=== PATIENT | female | born 1980 | race Caucasian/White ===

== ENCOUNTER 2016-11-30 18:32 | Emergency (ER) | payer OTHER ==
[2016-11-30 18:49] VITALS: RESP 18
--- NOTE | 2016-11-30 19:39 | ED ---
Abdominal Pain HPI - General Chief Complaint: Abdominal Pain Stated Complaint: and bleeding, abdominal pain Time Seen by Provider: 11/30/16 19:26 Source: patient, RN notes reviewed Mode of arrival: ambulatory Limitations: no limitations - History of Present Illness Initial Comments: Patient is a 35-year-old female with chief complaint of right lower quadrant abdominal pain for the past 24 hours. Patient reports that she took a positive test on November 09. Patient reports that on November 17 she started to have light spotting bleeding. Patient reports that she's continued to have light spotting bleeding from the until today. Patient reports that the bleeding became heavier over the past 2 days and now she has right lower quadrant pain. Patient reports that the pain is a cramping sensation and will occur for a few minutes and then stop. Patient reports that she is concerned she has an ectopic . Patient denies any other symptoms including nausea or vomiting, dysuria hematuria or changes in stools. She denies any fever or chills. Patient reports that this would be her ninth she has 8 living children. - Related Data Home Medications Medication Instructions Recorded Confirmed No Known Home Medications [No 11/30/16 11/30/16 Known Home Medications] Allergies Allergy/AdvReac Type Severity Reaction Status Date / Time No Known Allergies Allergy Verified 11/30/16 19:10 Review of Systems ROS Statement: Those systems with pertinent positive or pertinent negative responses have been documented in the HPI. ROS Other: All systems not noted in ROS Statement are negative. Past Medical History Past Medical History: No Reported History Additional Past Medical History / Comment(s): patient denies history. History of Any Multi-Drug Resistant Organisms: None Reported Past Surgical History: No Surgical Hx Reported Past Anesthesia/Blood Transfusion Reactions: No Reported Reaction Past Psychological History: No Psychological Hx Reported Smoking Status: Current every day smoker Past Alcohol Use History: None Reported Past Drug Use History: None Reported - Past Family History Mother Family Medical History: No Reported History General Exam - General Exam Comments Initial Comments: Patient is a well-appearing 35-year-old female. She does not appear to be in any acute distress. Limitations: no limitations General appearance: alert, in no apparent distress Head exam: Present: atraumatic, normocephalic, normal inspection Eye exam: Present: normal appearance, PERRL, EOMI. Absent: scleral icterus, conjunctival injection, periorbital swelling ENT exam: Present: normal exam, mucous membranes moist Neck exam: Present: normal inspection. Absent: tenderness, meningismus, lymphadenopathy Respiratory exam: Present: normal lung sounds bilaterally. Absent: respiratory distress, wheezes, rales, rhonchi, stridor Cardiovascular Exam: Present: regular rate, normal rhythm, normal heart sounds. Absent: systolic murmur, diastolic murmur, rubs, gallop, clicks GI/Abdominal exam: Present: soft, normal bowel sounds. Absent: distended, tenderness, guarding, rebound, rigid External exam: Present: normal external exam Speculum exam: Present: vaginal bleeding (Patient has evidence of vaginal " whole bleeding and linear cervix. Evidence of clots.). Absent: normal speculum exam By manual exam: Present: normal by manual exam. Absent: cervical motion tenderness, adnexal tenderness, adnexal mass, uterine enlargement, uterine tenderness Extremities exam: Present: normal inspection, full ROM, normal capillary refill. Absent: tenderness, pedal edema, joint swelling, calf tenderness Back exam: Present: normal inspection Neurological exam: Present: alert, oriented X3, CN II-XII intact Psychiatric exam: Present: normal affect, normal mood Skin exam: Present: warm, dry, intact, normal color. Absent: rash Course Vital Signs 11/30/16 11/30/16 18:41 20:49 Temperature 97.8 F 98 F Pulse Rate 101 H 90 Respiratory 18 18 Rate Blood Pressure 125/84 124/68 O2 Sat by Pulse 98 97 Oximetry Medical Decision Making - Medical Decision Making Patient is a 35-year-old female with chief complaint of vaginal bleeding for the past 2 weeks. Patient reports that she had a positive test approximately 4 weeks ago. She states that over the past day she has developed more significant bleeding and a right lower quadrant pain. Patient reports that this is her ninth . Patient is O+. Beta hCG hormone is 25,107. US shows 6 weeks IUP with no gestational heart tones. Evidence of 2cm subchorionic bleed. Patient will get out patient repeat hcg in 48 hours and follow up with OBGYN. Patient understands treatment plan and will comply. - Lab Data Result diagrams: 11/30/16 19:39 Lab Results 11/30/16 11/30/16 11/30/16 Range/Units 19:39 19:39 19:39 WBC 8.0 (3.8-10.6) k/uL RBC 3.76 L (3.80-5.40) m/uL Hgb 12.2 (11.4-16.0) gm/dL Hct 35.9 (34.0-46.0) % MCV 95.5 (80.0-100.0) fL MCH 32.5 (25.0-35.0) pg MCHC 34.0 (31.0-37.0) g/dL RDW 12.6 (11.5-15.5) % Plt Count 404 (150-450) k/uL Neutrophils % 67 % Lymphocytes % 24 % Monocytes % 6 % Eosinophils % 2 % Basophils % 1 % Neutrophils # 5.4 (1.3-7.7) k/uL Lymphocytes # 1.9 (1.0-4.8) k/uL Monocytes # 0.5 (0-1.0) k/uL Eosinophils # 0.2 (0-0.7) k/uL Basophils # 0.0 (0-0.2) k/uL HCG, Quant 91500.9 mIU/mL Urine Color Urine Appearance (Clear) Urine pH (5.0-8.0) Ur Specific [place] (1.001-1.035) Urine Protein (Negative) Urine Glucose (UA) (Negative) Urine Ketones (Negative) Urine Blood (Negative) Urine Nitrate (Negative) Urine Bilirubin (Negative) Urine Urobilinogen (<2.0) mg/dL Ur Leukocyte Esterase (Negative) Urine RBC (0-5) /hpf Urine WBC (0-5) /hpf Ur Squamous Epith Cells (0-4) /hpf Urine Bacteria (None) /hpf Urine Mucus (None) /hpf Trichomonas Ag (Rapid) (Negative) Blood Type O Positive Blood Type Recheck No 11/30/16 11/30/16 Range/Units 19:39 20:50 WBC (3.8-10.6) k/uL RBC (3.80-5.40) m/uL Hgb (11.4-16.0) gm/dL Hct (34.0-46.0) % MCV (80.0-100.0) fL MCH (25.0-35.0) pg MCHC (31.0-37.0) g/dL RDW (11.5-15.5) % Plt Count (150-450) k/uL Neutrophils % % Lymphocytes % % Monocytes % % Eosinophils % % Basophils % % Neutrophils # (1.3-7.7) k/uL Lymphocytes # (1.0-4.8) k/uL Monocytes # (0-1.0) k/uL Eosinophils # (0-0.7) k/uL Basophils # (0-0.2) k/uL HCG, Quant mIU/mL Urine Color Yellow Urine Appearance Clear (Clear) Urine pH 7.0 (5.0-8.0) Ur Specific [place] 1.014 (1.001-1.035) Urine Protein Trace H (Negative) Urine Glucose (UA) Negative (Negative) Urine Ketones Negative (Negative) Urine Blood Large H (Negative) Urine Nitrate Negative (Negative) Urine Bilirubin Negative (Negative) Urine Urobilinogen <2.0 (<2.0) mg/dL Ur Leukocyte Esterase Moderate H (Negative) Urine RBC 2 (0-5) /hpf Urine WBC 5 (0-5) /hpf Ur Squamous Epith Cells 3 (0-4) /hpf Urine Bacteria Occasional H (None) /hpf Urine Mucus Rare H (None) /hpf Trichomonas Ag (Rapid) Negative (Negative) Blood Type Blood Type Recheck - Radiology Data Radiology results: report reviewed US shows 6 week IUP with no detectable heart tones. PAtient also has 2cm subchorionic bleed behind getational sac. Disposition Clinical Impression: Threatened miscarriage, Subchorionic bleed Disposition: HOME SELF-CARE Instructions: Threatened Miscarriage (ED), Subchorionic Hemorrhage (ED) Additional Instructions: Patient instructed to follow up with [facility]. Repeat blood work in approximately 2 days. To compare to current lab work. Return to the [facility] if any alarming signs or symptoms occur. Referrals: Etta Dawson MD [Primary Care Provider] - 1-2 days Los Arvizu DO [Doctor of Osteopathic Medicine] - 1-2 days Time of Disposition: 21:12
[2016-11-30 19:52] LABS: Basophils % (A) 1 %; CH 32.8; CHCM 34.5; Eosinophils # (A) 0.2 k/uL (0-0.7); Eosinophils % (A) 2 %; HCT 35.9 % (34.0-46.0); HDW 2.33; HGB 12.2 gm/dL (11.4-16.0); Luc # (Auto) 0.09; Luc % (Auto) 1; Lymphocytes # (A) 1.9 k/uL (1.0-4.8); Lymphocytes % (A) 24 %; MCH 32.5 pg (25.0-35.0); MCV 95.5 fL (80.0-100.0); Mean Platelet Volume 7.5; Monocytes # (A) 0.5 k/uL (0-1.0); Monocytes % (A) 6 %; Neutrophils # (A) 5.4 k/uL (1.3-7.7); Neutrophils % (A) 67 %; RBC 3.76 m/uL (3.80-5.40); RDW 12.6 % (11.5-15.5); WBC (Perox) 8.29
[2016-11-30 19:56] LABS: Appearance,Urine Clear (Clear); Bacteria,Urine Occasional /hpf; Bilirubin,Urine Negative (Negative); Glucose,Urine (UA) Negative (Negative); Ketones,Urine Negative (Negative); Leukocyte Esterase,Urine Moderate (Negative); Mucus,Urine Rare /hpf; Nitrite,Urine Negative (Negative); Particle Count 3485; Protein,Urine Trace (Negative); RBC,Urine 2 /hpf (0-5); Specific Gravity,Urine 1.014 (1.001-1.035); Squamous Epithelial Cell,Urine 3 /hpf (0-4); UA Billing (MACRO vs. MICRO) MICRO; Urobilinogen,Urine <2.0 mg/dL (<2.0); WBC,Urine 5 /hpf (0-5)
[2016-11-30 20:55] VITALS: BP 124/68; PULSE 90; TEMP 98
--- NOTE | 2016-11-30 21:04 | US ---
EXAMINATION TYPE: US OB <= 14 wk fetus DATE OF EXAM: 11/30/2016 8:15 PM COMPARISON: No previous CLINICAL HISTORY: pain. Intermittent right pelvic pain x 1 week, bleeding x 2 weeks, 9, para 8 EXAM PERFORMED: Transabdominal (TA) EXAM MEASUREMENTS: GESTATIONAL AGE / DATING Physician Established: Not established yet Dates by LMP: (8 weeks/3 days) EDC: 07/09/2017 Dates by First Scan: No previous Dates by Current Scan for: (6 weeks/1 days) EDC: 07/25/2017 MATERNAL ANATOMY Uterus: 9.7 x 5.9 x 7.7cm Right Ovary: 2.2 x 1.6 x 1.5cm Left Ovary: 3.3 x 1.4 x 1.9cm Post CDS / Adnexa: wnl Presence of free fluid: no Presence of corpus luteal cyst: 1.7 x 0.9 x 1.2cm hypoechoic area - left ovary Presence of subchorionic bleed: 1.9 x 0.8 x 1.9cm complex area adjacent to gestational sac GESTATION / SURVEY CRL: 0.4cm (6 weeks/1 days) Yolk Sac (normal less than 6mm): 3.0mm Heart Rate: unable to detect embryonic heart tones at this time Date of LMP: 10/02/16 Beta HcG (if available): Not available at time of exam IMPRESSION: 6 WEEK 1 DAY SINGLE IUP, unable to detect embryonic heart tones at this time, 1.9 x 0.8 x 1.9cm complex area adjacent to gestational sac, likely subchorionic bleed
== END 2016-11-30 21:25 | disposition home or self-care (01) ==
LOC: EC 18:32
DX: O20.0 Threatened abortion (principal); O20.8 Other hemorrhage in early pregnancy; Z3A.01 Less than 8 weeks gestation of pregnancy
CPT/HCPCS: 36415; 76801; 81001; 84702; 85025; 86900; 86901; 87070; 87205; 87491; 87591; 87808; 99284

== ENCOUNTER → 2016-12-02 | Outpatient (CLI) | payer OTHER | END | disposition home or self-care (01) | LOC: LABMAIN 21:45 | PROVIDERS: ATTEND Internal Medicine | DX: O20.0 Threatened abortion (principal) | CPT/HCPCS: 36415; 84702 ==

== ENCOUNTER → 2017-01-28 | Outpatient (CLI) | payer OTHER ==
[2017-01-28 14:51] LABS: CH 30.5; CHCM 31.2; HCT 33.8 % (34.0-46.0); HDW 3.22; HGB 10.8 gm/dL (11.4-16.0); Hypochromasia Moderate; MCH 31.2 pg (25.0-35.0); MCHC 31.8 g/dL (31.0-37.0); MCV 98.1 fL (80.0-100.0); Mean Platelet Volume 6.7; RBC 3.45 m/uL (3.80-5.40); RDW 12.9 % (11.5-15.5); WBC 5.9 k/uL (3.8-10.6)
[2017-01-28 15:14] LABS: Follicle Stimulating Hormone 9.3 mIU/mL; HCG,Quantitative Serum <2.4 mIU/mL; Prolactin 13.4 ng/mL (3.0-18.6)
== END | disposition home or self-care (01) ==
LOC: LABWHC1 14:27
PROVIDERS: ATTEND Obstetrics & Gynecology
DX: N92.0 Excessive and frequent menstruation with regular cycle (principal)
CPT/HCPCS: 36415; 83001; 83002; 84146; 84443; 84702; 85027

== ENCOUNTER → 2017-02-04 | Outpatient (CLI) | payer OTHER ==
[2017-02-04 14:20] LABS: Basophils # (A) 0.1 k/uL (0-0.2); Basophils % (A) 1 %; CH 29.9; CHCM 30.8; Eosinophils # (A) 0.1 k/uL (0-0.7); Eosinophils % (A) 2 %; HCT 34.7 % (34.0-46.0); HDW 3.18; HGB 11.3 gm/dL (11.4-16.0); Hypochromasia Marked; Luc # (Auto) 0.17; Luc % (Auto) 3; Lymphocytes # (A) 1.8 k/uL (1.0-4.8); Lymphocytes % (A) 33 %; MCH 31.7 pg (25.0-35.0); MCHC 32.6 g/dL (31.0-37.0); MCV 97.3 fL (80.0-100.0); Mean Platelet Volume 6.6; Monocytes # (A) 0.5 k/uL (0-1.0); Monocytes % (A) 10 %; Neutrophils # (A) 2.9 k/uL (1.3-7.7); Neutrophils % (A) 52 %; RBC 3.56 m/uL (3.80-5.40); RDW 13.5 % (11.5-15.5); WBC 5.6 k/uL (3.8-10.6)
== END | disposition home or self-care (01) ==
LOC: LABPAT 13:52
PROVIDERS: ATTEND Obstetrics & Gynecology
DX: Z01.818 Encounter for other preprocedural examination (principal)
CPT/HCPCS: 85025

== ENCOUNTER 2017-02-12 06:24 | Day surgery (SDC) | payer OTHER ==
[2017-02-11 08:51] VITALS: BMI 18.6
[~2017-02-12 06:24] MED LIST: DEXAMETHASONE SOD PHOSPHATE 10 MG/ML 1 ML VIAL IV ONE; HYDROmorphone 1 MG/ML 1 ML SYRINGE IVP PRN; LACTATED RINGERS 1,000 ML IV SCH; Pre Op ABX Message 1 EACH MISC MISCELLANE ONE
[2017-02-12] MEDS ORDERED: LIDOCAINE 1% 20 ML VIAL (10MG/ML) FOR IV START INTRADERMA ONE (07:11)
[2017-02-12] MEDS: ONDANSETRON 4 MG/2 ML VIAL IVP ONE ×2 (07:12→09:18)
[2017-02-12] MEDS ORDERED: SCOPOLAMINE 1.5MG/72HR PATCH TRANSDERM ONE (07:20)
--- NOTE | 2017-02-12 07:39 | P.HPOB ---
History of Present Illness H&P Date: 02/12/17 Chief Complaint: Menorrhagia and family planning Radha is a 36-year-old female who is clear family planning and complains of very heavy vaginal bleeding. Patient has had very heavy vaginal bleeding the last 5-7 days every month is gentle heavy chest missed 1 few days work due to how heavy it is. This is unacceptable to her lifestyle and she is scheduled for D&C hysteroscopy with NovaSure and a laparoscopic tubal occlusion with Filshie clips. Risks/benefits/alternatives reviewed with the patient in detail and all questions were answered for her prior to proceeding to the operating room. Physical exam vital signs are stable and afebrile. Heart regular, lungs clear, extremities without pain. Pelvic exams unremarkable. Assessment menorrhagia. Plan D&C hysteroscopy with NovaSure and a left scopic tubal occlusion with Filshie clips Past Medical History Past Medical History: No Reported History Additional Past Medical History / Comment(s): patient denies history. History of Any Multi-Drug Resistant Organisms: None Reported Past Surgical History: No Surgical Hx Reported Past Anesthesia/Blood Transfusion Reactions: Unable to Obtain Additional Past Anesthesia/Blood Transfusion Reaction / Comment(s): no surgery Past Psychological History: No Psychological Hx Reported Smoking Status: Current every day smoker Past Alcohol Use History: None Reported Past Drug Use History: None Reported - Past Family History Mother Family Medical History: No Reported History Medications and Allergies Home Medications Medication Instructions Recorded Confirmed Type [id number] 1 each PO Q4HR PRN 02/11/17 02/11/17 History [Excedrin] Allergies Allergy/AdvReac Type Severity Reaction Status Date / Time No Known Allergies Allergy Verified 02/12/17 06:33 Exam Osteopathic Statement: *. No significant issues noted on an osteopathic structural exam other than those noted in the History and Physical/Consult. - Vital Signs Vital signs: Vital Signs Temp Pulse Resp BP Pulse Ox 02/12/17 06:42 97.8 F 89 16 111/74 99
[2017-02-12] MEDS ORDERED: MIDAZOLAM 2 MG/2 ML VIAL ONE (07:45)
[2017-02-12] MEDS ORDERED: LIDOCAINE 1% INJ 10MG/ML (20 ML MDV) ONE (07:45)
[2017-02-12] MEDS ORDERED: ROCURONIUM BROMIDE 10 MG/ML 10 ML VIAL IV ONE (07:45)
[2017-02-12] MEDS ORDERED: DEXAMETHASONE SOD PHOS (MDV) 100 MG/10 ML VIAL ONE (07:45)
[2017-02-12] MEDS ORDERED: SUCCINYLCHOLINE CHLORIDE 100 MG/5 ML SYR IV ONE (07:45)
[2017-02-12] MEDS ORDERED: fentaNYL (PF) 50 MCG/ML 2 ML AMP ONE (07:45)
[2017-02-12] MEDS ORDERED: KETOROLAC 30 MG/ML 1 ML VIAL ONE (07:45)
[2017-02-12] MEDS ORDERED: ONDANSETRON 4 MG/2 ML VIAL ONE (07:45)
[2017-02-12] MEDS ORDERED: NEOSTIGMINE 1 MG/ML 10 ML VIAL ONE (07:45)
[2017-02-12] MEDS ORDERED: PROPOFOL 10 MG/ML 20 ML VIAL IV ONE (07:45)
[2017-02-12] MEDS ORDERED: GLYCOPYRROLATE 0.2 MG/ML 2 ML VIAL ONE (07:45)
[2017-02-12] MEDS ORDERED: BUPIVACAINE (PF) 0.25% 30 ML VIAL SQ ONE ×2 (08:11)
[2017-02-12] MEDS ORDERED: LACTATED RINGERS 1,000 ML IV ONE (08:37)
--- NOTE | 2017-02-12 08:37 | P.OP ---
Date of Procedure: 02/12/17 Preoperative Diagnosis: Menorrhagia and family planning Postoperative Diagnosis: Same Procedure(s) Performed: Laps up tubal occlusion with Filshie clips and a dilation and curettage with failed ablation Anesthesia: YAMILKA Surgeon: Los Arvizu Estimated Blood Loss (ml): 10 Urine output (ml): 20 Pathology: other (Uterine curettings) Condition: stable Disposition: same day Operative Findings: Despite using 2 separate handpieces the NovaSure system would not passed its patency test and therefore procedure failed. Description of Procedure: Patient was taken the operating suite where a general anesthetic was found be adequate. She was prepped and draped in the normal sterile fashion and placed in dorsal lithotomy position. Initially a speculum was inserted in vagina into lip cervix identified and grasped with a single-tooth tenaculum area and acorn manipulator was inserted without difficulty and red rubber cath was used to drain the bladder urine. Once this was accomplished catheter and speculum were removed and gloves were changed and attention was turned to abdominal portion procedure where by approximately 2 mL of 4% Marcaine was injected periumbilically. Through this injected anesthetic a 5 mm skin incision was made and through this incision under direct visualization with an optical trocar and sleeve the camera was inserted. Once peritoneal placement was assured gas was left fully insufflate the abdomen and patient was placed in steep Trendelenburg position. A second 8 mm skin incision was then made 3 cm above the pubic symphysis in the midline and through this incision an 8 mm port and sleeve were inserted. Once accomplished observations pelvis were noted first the right tube the left tube had a Filshie clip applied 3 cm from uterine cornu. Once this was accomplished seeing no bleeding from the mesosalpinx and no other gross pathology instruments were removed and gas was allowedJ. 3 deep breaths were done during this process 0 Vicryl was then used to close incisions subcuticularly. Once all this was accomplished attention was again returned to the vagina speculum was reinserted and acorn manipulator was removed. Cystoscope was then inserted no significant pathology was noted therefore camera was removed and sharp curettings of the endometrium were obtained. This tissue was all collected placed on Telfa sent to pathology for evaluation. Once this was accomplished NovaSure system was inserted with a length of 5 and a width of 2.5 it was tested it is not passing patency test. Patient was noted to have a relatively open cervix and therefore an Allis clamp was initially used to help close this tissue down. It still would not pass patency test therefore a gauze was inserted and still would not pass patency test. Therefore a second handpiece was brought in and unfortunately the same outcome came as we were unable to get the laboratory assistant passes patency test. Camera was then reinserted no perforation was noted. We'll have to have the patient back in the office and decide what options she would like to pursue based on the fact that this would not work. Sponge, lap, needle counts were all correct 2. Patient was then taken to the recovery room in stable and satisfactory condition. Plan - Discharge Summary New Discharge Prescriptions: Acetaminophen-Codeine 300-30mg [Tylenol #3] 1 tab PO Q4H PRN #30 tablet PRN Reason: Pain Ibuprofen [Motrin] 600 mg PO Q6HR PRN #30 tab PRN Reason: Pain Discharge Medication List [id number] [Excedrin] 1 each PO Q4HR PRN 02/11/17 [History] Acetaminophen-Codeine 300-30mg [Tylenol #3] 1 tab PO Q4H PRN #30 tablet [Rx] Ibuprofen [Motrin] 600 mg PO Q6HR PRN #30 tab 02/12/17 [Rx] Follow up Appointment(s)/Referral(s): Los Arvizu DO [Doctor of Osteopathic Medicine] - 2 Weeks Patient Instructions/Handouts: *Surgery [facility] - Scopalamine Patch Instructions Activity/Diet/Wound Care/Special Instructions: No heavy lifting, limit stairs and driving and pelvic rest. If any high temperatures, heavy bleeding, or severe pain call my office
[2017-02-12 09:01] VITALS: TEMP 97.1
[2017-02-12] MEDS: MEPERIDINE 50 MG/ML SYRINGE IVP ONE ×4 (09:04→09:21)
[2017-02-12 09:07] VITALS: RESP 16
[2017-02-12] MEDS ORDERED: Acetaminophen-Codeine 300-30mg TAB PO ONE (09:59)
[2017-02-12 10:23] VITALS: BP 125/81; PULSE 78
== END 2017-02-12 10:35 | disposition home or self-care (01) ==
LOC: OR 06:24
PROVIDERS: ATTEND Obstetrics & Gynecology
DX: N92.0 Excessive and frequent menstruation with regular cycle (principal); Z30.2 Encounter for sterilization; F17.200 Nicotine dependence, unspecified, uncomplicated; Z53.8 Procedure and treatment not carried out for other reasons
CPT/HCPCS: 81025; 88305; 58671; 58563; J2250; J1100 ×2; J2710; J2405; J2001; J3010; J1885; J0330; J2704